=== PATIENT | female | born 1970 ===

== ENCOUNTER 2021-09-13 13:14 | Emergency (ER) | payer SELFPAY ==
[2021-09-13 13:39] VITALS: BP 158/84; PULSE 94; RESP 20; TEMP 36.4; O2SAT 95
--- NOTE | 2021-09-13 15:27 | PC.NURSE ---
Pt to intake desk stating that she feels better and is going to leave. Pt calling cab for ride home
== END 2021-09-14 04:27 | disposition left against medical advice (07) ==
LOC: ANHED 17:46
DX: H53.2 Diplopia (principal)
CPT/HCPCS: 99199